=== PATIENT | male | born 1980 | race Caucasian/White ===

== ENCOUNTER 2017-07-30 15:10 | Emergency (ER) | payer BC ==
[2017-07-30] MEDS ORDERED: Midazolam* 1 MG/ML 10 ML VIAL (10 MG) ONE ×4 (15:30→16:19)
[2017-07-30] MEDS ORDERED: Succinylcholine* 20 MG/ML 10 ML VIAL ONE (15:30)
[2017-07-30] MEDS ORDERED: Etomidate* 2 MG/ML 20 ML VIAL (40 MG) ONE (15:32)
[2017-07-30] MEDS ORDERED: NS 0.9% 1000 ML* 1,000 ML IV ONE (15:35)
[2017-07-30] MEDS ORDERED: Propofol* 10 MG/ML 20 ML BTL IV PUSH ONE (15:35)
[2017-07-30] MEDS ORDERED: Propofol* 500 MG/50 ML BTL ONE (15:37)
[2017-07-30] MEDS ORDERED: Propofol* 100 ML ONE (15:37)
[2017-07-30 15:50] LABS: ABS Basophils 0.1 10^3/ul (0-0.2); ABS Eosinophils 0.2 10^3/ul (0-0.6); ABS Monocytes 0.7 10^3/ul (0-0.8); ABS Neutrophils 4.6 10^3/ul (1.5-7.7); ABS Nucleated RBC 0 10^3/ul; Eosinophil % 2.2 % (0-6); Hematocrit 45 % (42-52); Hemoglobin 15.9 g/dl (14.0-18.0); Lymphocyte % 35.1 % (25-47); Mean Corpuscular HGB Conc 35 g/dl (31-36); Mean Corpuscular Hemoglobin 34 pg (27-31); Mean Corpuscular Volume 95 fL (80-94); Mean Platelet Volume 7 um3 (7.4-10.4); Nucleated Red Blood Cells % 0; Platelet Count 322 10^3/ul (150-450); Red Blood Count 4.73 10^6/ul (4.0-5.4); Red Cell Distribution Width 12 % (10.5-15); White Blood Count 8.6 10^3/ul (3.5-10.8)
[2017-07-30] MEDS ORDERED: Midazolam concentrated* 5 MG/ML 1 ml VIAL ONE (15:56)
[2017-07-30] MEDS ORDERED: Midazolam* 1 MG/ML 2 ML VIAL (2 MG) IV ONE (15:57)
[2017-07-30] MEDS ORDERED: Propofol* 500 MG/50 ML BTL IV SCH (16:00)
[2017-07-30 16:02] LABS: INR 0.82 (0.77-1.02)
[2017-07-30 16:03] LABS: EGFR Non-African American 78.6 (>60)
[2017-07-30] MEDS ORDERED: Midazolam* 1 MG/ML 2 ML VIAL (2 MG) IM ONE (16:15)
[2017-07-30] MEDS ORDERED: fentaNYL* 50 MCG/ML 2 ML VIAL (100 MCG VIAL) IV SLOW PU ONE (16:32)
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
[2017-07-30 16:42] VITALS: BP 134/89
--- NOTE | 2017-07-30 16:48 | RAD ---
HISTORY: Status post intubation COMPARISONS: None VIEWS: 1: frontal portable view of the chest at 4:30 PM FINDINGS: LINES AND TUBES: An endotracheal tube is noted with the tip overlying the trachea between the clavicles and the chadd. A gastric tube is noted, with the tip in the left upper quadrant in a prepyloric position.. CARDIOMEDIASTINAL SILHOUETTE: The cardiomediastinal silhouette is normal for portable technique. PLEURA: The costophrenic angles are sharp. No pleural abnormalities are noted. LUNG PARENCHYMA: The lungs are clear. ABDOMEN: The upper abdomen is clear. There is no subphrenic gas. BONES AND SOFT TISSUES: No bone or soft tissue abnormalities are noted. IMPRESSION: LINES AND TUBES ABOVE. NO ACTIVE CARDIOPULMONARY DISEASE.
== END 2017-07-30 17:02 | disposition short-term general hospital (02) ==
LOC: ED 15:10
DX: T23.301A Burn of third degree of right hand, unspecified site, initial encounter (principal); T23.302A Burn of third degree of left hand, unspecified site, initial encounter; T23.201A Burn of second degree of right hand, unspecified site, initial encounter; T23.202A Burn of second degree of left hand, unspecified site, initial encounter; T20.00XA Burn of unspecified degree of head, face, and neck, unspecified site, initial encounter; X08.8XXA Exposure to other specified smoke, fire and flames, initial encounter; Y92.9 Unspecified place or not applicable; J02.9 Acute pharyngitis, unspecified
CPT/HCPCS: 31500; 36415; 71045; 80053; 82375; 82550; 83605; 83874; 84484; 85025; 85610; 85730; 93005; 94002; 99285; J0330; J2250; J2704